=== PATIENT | female | born 1950 | race Caucasian/White ===

== ENCOUNTER → 2020-07-19 | Outpatient (CLI) | payer MEDICARE ==
[~2020-07-19] MED LIST: AUGMENTIN 875-1 EACH PO; CLOPIDOGREL75 MG PO; DULOXETINE HCL30 MG PO; FERROUS GLUCON324 M2 PO; HYDROCODON-ACE1 EAC2 PO; LANTUS SOL100 UNIT/1 SQ; LISINOPRIL5 MG PO; LOPRESSOR 25 MG25 MG PO; LOW DOSE ASPIRI81 MG PO; MECLIZINE HCL25 MG PO; VENTOLIN HFA 66.7 GM INH; VICTOZA 3-0.6 MG/0.1 SQ; WELLBUTRIN SR150 M1 PO
== END ==
LOC: KOH-I 15:13
DX: R42 Dizziness and giddiness (principal)
CPT/HCPCS: 70450

== ENCOUNTER 2020-10-10 18:18 | Inpatient (IN) | payer MEDICARE ==
[~2020-10-10] VITALS: Ht 160 cm; Wt 95.9 kg
[2020-10-10 21:08] LABS: HEMOGLOBIN 10.6 gm/dl (12.3-15.3); RED BLOOD COUNT 4.32 M/UL (4.00-5.10)
[2020-10-10 21:31] LABS: BUN/CREATININE RATIO 35 (0-10)
[2020-10-11] MEDS ORDERED: LANTUS SOL100 UNIT/1 SQ (00:26)
[2020-10-11] MEDS ORDERED: VICTOZA 3-0.6 MG/0.1 SQ (00:27)
[2020-10-11] MEDS ORDERED: DULOXETINE HCL30 MG PO (00:27)
[2020-10-11] MEDS ORDERED: VENTOLIN HFA 66.7 GM INH (00:28)
[2020-10-11] MEDS ORDERED: LISINOPRIL5 MG PO (00:30)
[2020-10-11] MEDS ORDERED: CLOPIDOGREL75 MG PO (00:30)
[2020-10-11] MEDS ORDERED: LOPRESSOR 25 MG25 MG PO (00:31)
[2020-10-11] MEDS ORDERED: LOW DOSE ASPIRI81 MG PO (00:31)
[2020-10-11] MEDS ORDERED: MECLIZINE HCL25 MG PO (00:32)
[2020-10-11] MEDS ORDERED: WELLBUTRIN SR150 M1 PO (00:33)
[2020-10-11 08:05] LABS: HEMOGLOBIN 8.9 gm/dl (12.3-15.3); RED BLOOD COUNT 3.89 M/UL (4.00-5.10); WHITE BLOOD COUNT 10.6 K/UL (4.5-11.0)
[2020-10-11 08:22] LABS: BUN/CREATININE RATIO 28 (0-10)
--- NOTE | 2020-10-12 04:29 | NUR ---
SPOKE TO PATIENT IN REGARDS TO SIGNING SURGERY CONSENTS AND TAKING A SURGERY BATH THIS MORNING. SHE SAID SHE IS STILL THINKING ABOUT IT AND WANTS TO WAIT UNTIL THIS LATER MORNING TO GET HER DAUGHTERS INPUT. DR. MAYO TOLD HER SHE COULD TAKE SOME TIME TO THINK ABOUT IT. SHE AGREED TO LETTING US KNOW SOON SHE TALKS WITH HER DAUGHTER AND MAKES A DECISION.
[2020-10-13 04:38] LABS: RED BLOOD COUNT 3.81 M/UL (4.00-5.10); WHITE BLOOD COUNT 9.8 K/UL (4.5-11.0)
[2020-10-15 03:15] LABS: HEMOGLOBIN 9.7 gm/dl (12.3-15.3); RED BLOOD COUNT 4.1 M/UL (4.00-5.10)
[2020-10-15] MEDS ORDERED: HYDROCODON-ACE1 EAC2 PO (13:00)
[2020-10-15] MEDS ORDERED: AUGMENTIN 875-1 EACH PO (13:00)
[2020-10-15] MEDS ORDERED: FERROUS GLUCON324 M2 PO (13:13)
== END 2020-10-15 16:39 | disposition home or self-care (01) | DRG 617 ==
LOC: ER1 18:18 → M/S 22:06 → CDU 22:06 → M/S 10-11 00:01
PROVIDERS: Internal Medicine Infectious Disease; Physician Assistant; Podiatrist Foot & Ankle Surgery; ADMIT Internal Medicine
PROC: B24BZZ4 Ultrasonography of Heart with Aorta, Transesophageal (ICD-10-PCS; 2020-10-11)
PROC: 0Y6U0Z0 Detachment at Left 3rd Toe, Complete, Open Approach (ICD-10-PCS; principal; 2020-10-12 14:57)
PROC: 0HRNXK3 Replacement of Left Foot Skin with Nonautologous Tissue Substitute, Full Thickness, External Approach (ICD-10-PCS; principal; 2020-10-12 14:57)
DX: E11.69 Type 2 diabetes mellitus with other specified complication (principal); I50.32 Chronic diastolic (congestive) heart failure; L03.116 Cellulitis of left lower limb; L02.612 Cutaneous abscess of left foot; M86.672 Other chronic osteomyelitis, left ankle and foot; Z20.822 Contact with and (suspected) exposure to COVID-19; B95.61 Methicillin susceptible Staphylococcus aureus infection as the cause of diseases classified elsewhere; E11.65 Type 2 diabetes mellitus with hyperglycemia; D50.9 Iron deficiency anemia, unspecified; F41.9 Anxiety disorder, unspecified; I11.0 Hypertensive heart disease with heart failure; I83.92 Asymptomatic varicose veins of left lower extremity; E11.40 Type 2 diabetes mellitus with diabetic neuropathy, unspecified; F32.9 Major depressive disorder, single episode, unspecified; E83.42 Hypomagnesemia; I25.10 Atherosclerotic heart disease of native coronary artery without angina pectoris; Z79.4 Long term (current) use of insulin; Z95.1 Presence of aortocoronary bypass graft; Z79.82 Long term (current) use of aspirin; Z95.5 Presence of coronary angioplasty implant and graft; Z83.3 Family history of diabetes mellitus; Z82.49 Family history of ischemic heart disease and other diseases of the circulatory system; Z90.49 Acquired absence of other specified parts of digestive tract; Z90.710 Acquired absence of both cervix and uterus
CPT/HCPCS: ECHO; 36415; 73630; 80048; 80053; 80061; 80202; 82550; 82553; 82607; 82746; 82962; 83036; 83540; 83550; 83605; 83735; 84100; 84439; 84443; 84484; 85025; 85027; 85652; 86140; 87040; 87070; 87077; 87186; 87205; 93306; 93925; 96374; 96375; 99284; J0692; J1100; J1650; J1756; J2001; J2405; J2543; J2704; J2795; J3010; J3370; J3475; J7070; J7120; Q4133; U0002